=== PATIENT | male | born 2000 | race Caucasian/White ===

== ENCOUNTER 2022-01-01 01:23 | Emergency (ER) | payer BC ==
[~2022-01-01] VITALS: Ht 182.9 cm; Wt 77.3 kg
[~2022-01-01 01:23] MED LIST: ALBUTEROL0.09 MG/A1 IH; NO HOME MEDICATIONS
[2022-01-01 01:27] VITALS: TEMP 98.7
[2022-01-01 02:12] VITALS: BP 125/79; PULSE 91
== END 2022-01-01 02:19 | disposition home or self-care (01) ==
LOC: COL.ER 01:23
DX: S01.112A Laceration without foreign body of left eyelid and periocular area, initial encounter (principal); Z23 Encounter for immunization; Y04.2XXA Assault by strike against or bumped into by another person, initial encounter; Y92.89 Other specified places as the place of occurrence of the external cause